=== PATIENT | male | born 1965 | race Hispanic/Latino ===

== ENCOUNTER 2024-01-02 18:34 | Inpatient (IN) | payer BC ==
[~2024-01-02] VITALS: Ht 175.3 cm; Wt 90.0 kg
[2024-01-02] MEDS: ASPIRIN 325MG TAB PO ONE (19:57)
[2024-01-02] MEDS: NITROGLYCERIN 0.4 MG SL TAB SL PRN (19:57)
[2024-01-02 20:02] LABS: CREATININE 0.9 mg/dL (0.5-1.3); POTASSIUM 4.9 mmol/L (3.5-5.1)
[2024-01-02 20:13] LABS: BASOPHILS # (AUTO) 0.08 K/uL (0.00-0.20); BASOPHILS % (AUTO) 0.9 % (0.0-5.0); EOSINOPHILS # (AUTO) 0.28 K/uL (0.00-0.70); EOSINOPHILS % (AUTO) 3.1 % (0.0-8.0); HEMATOCRIT 52.8 % (42-54); IMMATURE GRANULOCYTE ABSOLUTE 0.07 K/uL (0-1); LYMPHOCYTES % (AUTO) 43.4 % (21.0-51.0); MEAN CORPUSCULAR HEMOGLOBIN 30.3 pg (27.0-33.0); MEAN CORPUSCULAR HGB CONC 33.1 g/dL (32.0-36.0); MEAN CORPUSCULAR VOLUME 91.5 fL (79-99); MONOCYTES # (AUTO) 0.8 K/uL (0.1-1.0); MONOCYTES % (AUTO) 8.9 % (3.0-13.0); NEUTROPHILS # (AUTO) 3.9 K/uL (1.8-7.7); NEUTROPHILS % (AUTO) 42.9 % (40.0-77.0); PLATELET COUNT (AUTO) 184 K/uL (130-400); RED BLOOD CELL COUNT(AUTO) 5.77 MIL/uL (4.50-6.20); RED CELL DISTRIBUTION WIDTH 13.3 % (11.0-15.5); WHITE BLOOD COUNT (AUTO) 9.1 K/uL (4.8-10.8)
[2024-01-02 20:35] LABS: B-TYPE NATRIURETIC PEPTIDE 21 pg/mL (0-100)
[2024-01-02 21:16] LABS: ADD UA MICROSCOPIC YES; APPEARANCE,URINE CLEAR (CLEAR); BILIRUBIN,URINE NEGATIVE (NEGATIVE); COLOR,URINE LIGHT-YELLOW (YELLOW); GLUCOSE, URINE (UA) NEGATIVE (NEGATIVE); KETONES,URINE NEGATIVE (NEGATIVE); LEUKOCYTE ESTERASE ,URINE NEGATIVE Leu/uL (NEGATIVE); NITRATE,URINE NEGATIVE (NEGATIVE); OCCULT BLOOD,URINE NEGATIVE (NEGATIVE); PH,URINE 5.5 (5.0-8.0); PROTEIN,URINE NEGATIVE (NEGATIVE); UROBILINOGEN,URINE 0.2 mg/dL (0.2-1.0)
[2024-01-02 21:19] LABS: BACTERIA,URINE RARE /HPF (None Seen); RBC,URINE 0-1 /HPF (0-1); SQUAMOUS EPITHELIAL CELL,UR RARE /HPF (0-2)
[2024-01-02 21:22] LABS: AMPHET/METH SCREEN,URINE NEGATIVE (NEGATIVE); BARBITURATE SCREEN, URINE NEGATIVE (NEGATIVE); BENZODIAZEPINES SCREEN,URINE NEGATIVE (NEGATIVE); CANNABINOID SCREEN,URINE NEGATIVE (NEGATIVE); COCAINE SCREEN,URINE NEGATIVE (NEGATIVE); OPIATE SCREEN,URINE NEGATIVE (NEGATIVE); PHENCYCLIDINE SCREEN,URINE NEGATIVE (NEGATIVE)
[2024-01-02 22:00] LABS: INR 1.02 (0.85-1.15)
[2024-01-02 22:01] LABS: PARTIAL THROMBOPLASTIN TIME 27.3 SEC (26.3-35.5)
[2024-01-02] MEDS: PANTOPRAZOLE 40 MG TAB DR PO ONE (22:10)
[2024-01-02] MEDS: HEParin 25,000 UNITS/250ML D5W 250 ML IV PRN (22:11)
[2024-01-02] MEDS: HEParin 5,000 UNIT VIAL ONE (22:12)
[2024-01-03] MEDS ORDERED: NITROGLYCERIN 0.4 MG SL TAB SL PRN
[2024-01-03] MEDS ORDERED: POTASSIUM CHLORIDE 20MEQ/100ML 100 ML IV PRN
[2024-01-03] MEDS ORDERED: ONDANSETRON 4MG INJ IV PRN
[2024-01-03] MEDS ORDERED: DEXTROSE 50%-WATER 50 ML DISP.SYRIN IV PRN
[2024-01-03] MEDS ORDERED: KCL 20 MEQ ERTAB PO PRN
[2024-01-03] MEDS ORDERED: GLUCAGON 1MG KIT 1 MG ML IM PRN
[2024-01-03] MEDS ORDERED: POTASSIUM CHLORIDE 10% ELIXIR 20 MEQ/15 ML UDCUP PO PRN
[2024-01-03 02:35] VITALS: BP 124/79; PULSE 75; RESP 18; TEMP 97.5
[2024-01-03 06:09] LABS: INR 1.06 (0.85-1.15); PROTHROMBIN TIME 11.4 SEC (9.6-11.6)
[2024-01-03 06:11] LABS: HEMOGLOBIN A1C 6.3 % (4.0-6.0)
[2024-01-03] MEDS: INSULIN humuLIN R 100 UNIT/ML 3ML SQ SCH (06:17)
[2024-01-03 06:28] LABS: PARTIAL THROMBOPLASTIN TIME 107.6 SEC (26.3-35.5)
[2024-01-03 08:00] VITALS: BP 108/73; PULSE 67; RESP 18; TEMP 98.5; O2SAT 97
[2024-01-03] MEDS: ASPIRIN 81 MG EC TAB PO SCH (09:00)
[2024-01-03] MEDS: FAMOTIDINE 20MG VIAL IV SCH (09:53)
[2024-01-03 11:56] VITALS: BP 104/70; PULSE 68; RESP 18; TEMP 98.1
[2024-01-03] MEDS: REGADENOSON 0.4 MG/5 ML PF SYG IVP SCH (15:37)
[2024-01-03 20:00] VITALS: BP 100/70; PULSE 72; RESP 20; TEMP 98
[2024-01-04] VITALS: BP 103/70; PULSE 62; RESP 18; TEMP 98.5
[2024-01-04 03:45] LABS: BASOPHILS # (AUTO) 0.08 K/uL (0.00-0.20); BASOPHILS % (AUTO) 0.8 % (0.0-5.0); EOSINOPHILS # (AUTO) 0.26 K/uL (0.00-0.70); EOSINOPHILS % (AUTO) 2.5 % (0.0-8.0); IMMATURE GRANULOCYTE ABSOLUTE 0.08 K/uL (0-1); LYMPHOCYTES # (AUTO) 4.1 K/uL (1.0-4.8); LYMPHOCYTES % (AUTO) 39.7 % (21.0-51.0); MEAN CORPUSCULAR HEMOGLOBIN 30.4 pg (27.0-33.0); MEAN CORPUSCULAR VOLUME 92.2 fL (79-99); MONOCYTES # (AUTO) 0.8 K/uL (0.1-1.0); MONOCYTES % (AUTO) 7.6 % (3.0-13.0); NEUTROPHILS % (AUTO) 48.6 % (40.0-77.0); PLATELET COUNT (AUTO) 165 K/uL (130-400); RED BLOOD CELL COUNT(AUTO) 5.75 MIL/uL (4.50-6.20); RED CELL DISTRIBUTION WIDTH 13.4 % (11.0-15.5); WHITE BLOOD COUNT (AUTO) 10.2 K/uL (4.8-10.8)
[2024-01-04 03:56] LABS: MAGNESIUM 1.8 mg/dL (1.80-2.40); PHOSPHORUS 3.8 mg/dL (2.5-4.9); POTASSIUM 4.4 mmol/L (3.5-5.1)
[2024-01-04 04:00] VITALS: BP 108/71; PULSE 63; RESP 18; TEMP 98.3
[2024-01-04] MEDS: MAGNESIUM 2GM PREMIX 50ML 50 ML IV PRN (06:20)
[2024-01-04 08:00] VITALS: BP 108/78; PULSE 69; RESP 16; TEMP 97.9
[2024-01-04 09:30] VITALS: O2SAT 95
[2024-01-04 12:00] VITALS: BP 116/78; PULSE 67; RESP 18; TEMP 97.6
[2024-01-04] MEDS ORDERED: AEC81 PO (13:41)
[2024-01-04 16:00] VITALS: BP 115/78; PULSE 67; RESP 19; TEMP 98.4
== END 2024-01-04 15:43 | disposition home or self-care (01) | DRG 313 ==
LOC: EDH 18:34 → EDHIP 23:39 → 4CH 01-03 02:04
PROVIDERS: ADMIT Internal Medicine; ATTEND Internal Medicine
PROC: 4A12XM4 Monitoring of Cardiac Stress, External Approach (ICD-10-PCS; principal; 2024-01-03)
PROC: 3E073KZ Introduction of Other Diagnostic Substance into Coronary Artery, Percutaneous Approach (ICD-10-PCS; 2024-01-03)
DX: R07.89 Other chest pain (principal); I20.0 Unstable angina; I10 Essential (primary) hypertension; E78.5 Hyperlipidemia, unspecified; E11.9 Type 2 diabetes mellitus without complications; F17.210 Nicotine dependence, cigarettes, uncomplicated; E66.9 Obesity, unspecified; Z60.2 Problems related to living alone; J44.9 Chronic obstructive pulmonary disease, unspecified; Z79.82 Long term (current) use of aspirin; Z68.29 Body mass index [BMI] 29.0-29.9, adult
CPT/HCPCS: 36415; 71045; 78452; 80048; 80061; 80305; 81001; 82550; 82948; 83036; 83735; 83880; 84100; 84484; 85025; 85610; 85651; 85730; 93005; 93017; 93306; 93356; A9500; G0378; J1644; J1815; J2785; J3475; J3490